=== PATIENT | male | born 1965 | race Caucasian/White ===

== ENCOUNTER 2017-01-09 15:34 | Emergency (ER) | payer OTHER ==
[2017-01-09] MEDS ORDERED: ceFAZolin 2 GM in Premix Bag 1 BAG IV ONE (17:08)
--- NOTE | 2017-01-09 17:25 | EDM.PDOC ---
ED HPI GENERAL MEDICAL PROBLEM - General Chief Complaint: Laceration Stated Complaint: L FINGER LACERATION Time Seen by Provider: 01/09/17 16:53 Source of Information: Reports: Patient, RN Notes Reviewed History Limitations: Reports: No Limitations - History of Present Illness INITIAL COMMENTS - FREE TEXT/NARRATIVE: The patient states that he was cutting wood with a miter saw, when the saw caught the wood, kicking his left hand up into the saw blade, around 15:20 today , at work. The patient presents with a severe laceration to the dorsal aspect of his left fourth finger and the ulnar aspect of his left third finger. He is otherwise uninjured. The patient states that his last tetanus vaccination was within the last 7 years. His last oral solid intake was around 10:30 this morning. His last oral liquid intake was around 10:30 this morning. The patient's PCP is at the [place]. Left 4-Ring finger Pain Score (Numeric/FACES): 5 - Related Data Allergies Allergy/AdvReac Type Severity Reaction Status Date / Time No Known Allergies Allergy Verified 01/09/17 15:49 Home Meds: Home Meds . [No Known Home Meds] 01/09/17 [History] Past Medical History - Past Surgical History HEENT Surgical History: Reports: Oral Surgery ([place] teeth extraction) GI Surgical History: Reports: Hernia, Inguinal (Bilateral) Musculoskeletal Surgical History: Reports: Shoulder Surgery (right, arthroscopic ) Social & Family History - Tobacco Use Smoking Status *Q: Former Smoker Years of Tobacco use: 8 Packs/Tins Daily: 0.5 Used Tobacco, but Quit: Yes Month Tobacco Last Used: Quit 1985 - Caffeine Use Caffeine Use: Reports: Soda - Alcohol Use Alcohol Use History: Yes Alcohol Use Frequency: Socially - Recreational Drug Use Recreational Drug Use: No - Living Situation & Occupation Living situation: Reports: (), Alone Occupation: Employed ([employer]) ED ROS GENERAL - Review of Systems Review Of Systems: See Below Constitutional: Reports: No Symptoms HEENT: Reports: No Symptoms Respiratory: Reports: No Symptoms Cardiovascular: Reports: No Symptoms Endocrine: Reports: No Symptoms GI/Abdominal: Reports: No Symptoms : Reports: No Symptoms Musculoskeletal: Reports: No Symptoms Skin: Reports: No Symptoms Neurological: Reports: No Symptoms Psychiatric: Reports: No Symptoms Hematologic/Lymphatic: Reports: No Symptoms Immunologic: Reports: No Symptoms ED EXAM, SKIN/RASH Exam: See Below Exam Limited By: No Limitations General Appearance: Alert, WD/WN, No Apparent Distress Extremities: Other (There is an approximately 10 cm jagged laceration to the dorsum of the left fourth finger, extending from just proximal to the MCP joint to just distal to the PCP joint. There is limited extension, however, the finger is neurovascularly intact. There is an approximately 3 cm jagged laceration to the ulnar aspect of the left third finger, running from the webbing between the third and fourth fingers, to the PCP joint, along the proximal phalanx. Normal motor function to the finger. Neurovascular status is intact.) Neurological: Alert Psychiatric: Normal Affect Course - Vital Signs Last Recorded V/S: Last Vital Signs Temp 36.8 C 01/09/17 15:45 Pulse 60 01/09/17 15:45 Resp 18 01/09/17 15:45 BP 140/89 01/09/17 15:45 Pulse Ox 98 01/09/17 15:45 - Orders/Labs/Meds Orders: Active Orders 24 hr Category Date Time Status Nothing per Oral Now Diet [DIET] Diet 01/09/17 Breakfast Active Fingers Fourth Digit Lt F3 [CR] Stat Exams 01/09/17 17:06 Taken Fingers Third Digit Lt F2 [CR] Stat Exams 01/09/17 17:06 Taken Meds: Medications Discontinued Medications Generic Name Dose Route Start Last Admin Trade Name Freq PRN Reason Stop Dose Admin Cefazolin Sodium/Dextrose 2 gm 50 mls @ 100 mls/hr 01/09/17 17:08 01/09/17 17 :34 / Premix IV 01/09/17 17:37 100 mls/hr ONETIME ONE Administration - Radiology Interpretation Free Text/Narrative:: 4-view radiographs of the left fourth finger appears to demonstrate a comminuted fracture to the distal, dorsal aspect of the proximal phalanx, possibly intra-articular. Formal read per the Radiologist pending. 4-view radiographs of the left third finger appear to be grossly unremarkable. No fracture or dislocation identified. Formal read per the Radiologist pending. - Re-Assessments/Exams Free Text/Narrative Re-Assessment/Exam: 01/09/17 18:42 As the patient received a tetanus vaccination within 7 years, he does not require repeat today. He has been given 2 g Ancef here in the ED. Case discussed with Dr. Croft, orthopedic surgeon at [facility] at 18: 08. Unfortunately, he is a spinal surgeon, and the hand surgeon, Dr. Donal Chow, is off [facility]. He recommended that we try . Case discussed with Dr. Coburn, orthopedic hand surgeon at , at 18:34. He agrees to having the patient transferred to their ED. Case then discussed with Dr. Parrish, ED physician at at 18:39. He accepts the patient for transfer. 01/09/17 18:52 The above was discussed with the patient and his coworker. They would like to go by private vehicle. I am okay with that. The nurse will dress his wound prior to discharge. Departure - Departure Time of Disposition: 18:44 Disposition: DC/Tfer to Acute Hospital 02 Condition: Fair Clinical Impression: Finger laceration involving tendon, Open fracture proximal phalanx finger - Discharge Information - My Orders Last 24 Hours: My Active Orders 01/09/17 17:06 Fingers Fourth Digit Lt F3 [CR] Stat Fingers Third Digit Lt F2 [CR] Stat 01/09/17 Breakfast Nothing per Oral Now Diet [DIET] - Assessment/Plan Last 24 Hours: My Active Orders 01/09/17 17:06 Fingers Fourth Digit Lt F3 [CR] Stat Fingers Third Digit Lt F2 [CR] Stat 01/09/17 Breakfast Nothing per Oral Now Diet [DIET]
[2017-01-09 19:45] VITALS: BP 132/96
--- NOTE | 2017-01-10 07:16 | CR ---
Left third finger: Four views centered to the left third finger were obtained. Soft tissue injury and swelling noted. Bony structures are unremarkable. No fracture, dislocation or other bony abnormality is seen. Impression: 1. Soft tissue injury and swelling. 2. No bony abnormality is seen. Diagnostic code #3
--- NOTE | 2017-01-10 07:16 | CR ---
Left fourth finger: Four views centered to the left fourth finger were obtained. Comparison: No previous fourth finger exam. Soft tissue injury is identified. Soft tissue swelling is also identified. No acute fracture, dislocation or other bony abnormality is seen. Impression: 1. Soft tissue injury and swelling. 2. No bony abnormality is identified on left fourth finger study. Diagnostic code #3
== END 2017-01-09 19:13 ==
LOC: JD.ED 15:34
DX: S62.619B Displaced fracture of proximal phalanx of unspecified finger, initial encounter for open fracture (principal); S62.635A Displaced fracture of distal phalanx of left ring finger, initial encounter for closed fracture; S61.412A Laceration without foreign body of left hand, initial encounter; Z98.890 Other specified postprocedural states; Z87.891 Personal history of nicotine dependence; W29.8XXA Contact with other powered hand tools and household machinery, initial encounter; Y92.69 Other specified industrial and construction area as the place of occurrence of the external cause; Y93.89 Activity, other specified; Y99.0 Civilian activity done for income or pay
CPT/HCPCS: 73140; 96365; 99284; J0690; 99285